=== PATIENT | male | born 1990 | race Caucasian/White ===

== ENCOUNTER 2020-09-11 04:17 | Emergency (ER) | payer MEDICARE, OTHER ==
[~2020-09-11] VITALS: Ht 193 cm; Wt 135.6 kg
[2020-09-11 04:23] VITALS: BP 146/96
[2020-09-11] MEDS ORDERED: CIPR7.5D RIGHT EAR (04:30)
[2020-09-11] MEDS ORDERED: AMOX-422 PO (04:30)
== END 2020-09-11 04:53 | disposition home or self-care (01) ==
LOC: ER 04:19
DX: H92.01 Otalgia, right ear (principal); H60.331 Swimmer's ear, right ear; H66.011 Acute suppurative otitis media with spontaneous rupture of ear drum, right ear; R05 Cough; Z79.2 Long term (current) use of antibiotics
CPT/HCPCS: 99283